=== PATIENT | female | born 2005 | race Hispanic/Latino ===

== ENCOUNTER 2024-02-08 13:02 | Emergency (ER) | payer SELFPAY ==
[~2024-02-08] VITALS: Ht 162.6 cm; Wt 68.0 kg
[2024-02-08] MEDS: cefTRIAXone 1G VIAL IM ONE (13:52)
[2024-02-08] MEDS ORDERED: DOXY100C61 PO (14:21)
[2024-02-08] MEDS ORDERED: METR-172 PO (14:21)
[2024-02-08 14:47] VITALS: BP 122/70; PULSE 80; RESP 16; TEMP 98.8; O2SAT 98
[2024-02-08 15:04] LABS: APPEARANCE,URINE CLEAR (CLEAR); BILIRUBIN,URINE NEGATIVE (NEGATIVE); COLOR,URINE LIGHT-YELLOW (YELLOW); GLUCOSE, URINE (UA) NEGATIVE (NEGATIVE); KETONES,URINE 5 mg/dL (NEGATIVE); LEUKOCYTE ESTERASE ,URINE 25 Leu/uL (NEGATIVE); NITRATE,URINE NEGATIVE (NEGATIVE); OCCULT BLOOD,URINE MODERATE (NEGATIVE); PH,URINE 5.5 (5.0-8.0); PROTEIN,URINE NEGATIVE (NEGATIVE); UROBILINOGEN,URINE 0.2 mg/dL (0.2-1.0)
[2024-02-08 15:05] LABS: ADD UA MICROSCOPIC YES
[2024-02-08 15:10] LABS: BACTERIA,URINE RARE /HPF (None Seen); MUCUS,URINE RARE LPF (None Seen); RBC,URINE 0-1 /HPF (0-1); SQUAMOUS EPITHELIAL CELL,UR RARE /HPF (0-2)
[2024-02-08 15:16] LABS: HCG,QUALITATIVE URINE NEGATIVE (NEGATIVE)
== END 2024-02-08 14:51 | disposition home or self-care (01) ==
LOC: EDH 13:02
DX: R30.0 Dysuria (principal); Z20.2 Contact with and (suspected) exposure to infections with a predominantly sexual mode of transmission
CPT/HCPCS: 99283; 81001; 81025; 96372; J0696